=== PATIENT | male | born 1970 | race Caucasian/White ===

== ENCOUNTER 2018-04-10 11:14 | Inpatient (IN) | payer MEDICARE ==
--- NOTE | 2018-04-10 11:27 | ED ---
Psychiatric Complaint - HPI Summary HPI Summary: This pt is a 47 y/o male presenting to [facility] via EMS for auditory hallucinations. EMS states pt called them to come to the ED voluntarily for auditory hallucinations. Pt reports "there's a family living inside of me" and he hears them say "we are going to keep doing this until he is and buried. " He additionally states "she's trying to kill me." When asked if he knows who is she, he states he doesn't know. He reports he has SI and HI "all the time" and "absolutely I want to kill myself and everybody to get some peace." Pt notes his symptoms began "years ago." In 1992 he was diagnosed with schizophrenia, but states this was something his family made up to keep him away. Per EMS, pt is noncompliant with mental health medications. PMHx: HTN for which he is on medications. Pt admits to tobacco, marijuana, and alcohol use. He states the last time he drank alcohol was today. - History Of Current Complaint Chief Complaint: EDMentalHealth Hx Obtained From: Patient, EMS Onset/Duration: Lasting Weeks, Still Present Timing: Weeks Severity Currently: Severe Character: Manic Aggravating Factor(s): Medication Non-compliance Alleviating Factor(s): Nothing Associated Signs And Symptoms: Positive: Hallucinating Related History: Positive For: Prior Psychiatric Issues Has Suicidal: Reports: Thoughts. Denies: With A Plan Has Homicidal: Reports: Thoughts. Denies: With A Plan - Allergies/Home Medications Allergies/Adverse Reactions: Allergies Allergy/AdvReac Type Severity Reaction Status Date / Time No Known Allergies Allergy Verified 04/10/18 11:41 Home Medications: Home Medications Asenapine(NF) [Saphris(NF)] 10 mg SL DAILY 04/10/18 [History Confirmed 04/10/18] dilTIAZem HCl [Diltiazem 24Hr Cd] 180 mg PO DAILY 04/10/18 [History Confirmed ] PMH/Surg Hx/FS Hx/Imm Hx Endocrine/Hematology History: Denies: Hx Diabetes Cardiovascular History: Reports: Hx Hypertension Psychiatric History: Reports: Hx Schizophrenia Infectious Disease History: No Infectious Disease History: Denies: Traveled Outside the [place] in Last 30 Days - Family History Known Family History: Negative: Cardiac Disease, Hypertension, Diabetes - Social History Alcohol Use: Daily Substance Use Type: Reports: Marijuana Smoking Status (MU): Light Every Day Tobacco Smoker Review of Systems Negative: Fever, Chills Cardiovascular: Negative Respiratory: Negative Gastrointestinal: Negative Psychological: Other - POS: SI , HI, auditory hallucinations All Other Systems Reviewed And Are Negative: Yes Physical Exam - Summary Physical Exam Summary: VITAL SIGNS: Reviewed. GENERAL: Patient is a well-developed and nourished male. Patient is not in any acute respiratory distress. HEAD AND FACE: Normocephalic EYES: PERRLA, EOMI x 2. EARS: Hearing grossly intact. MOUTH: Oropharynx within normal limits. NECK: Supple, trachea is midline, no adenopathy, no JVD, no carotid bruit. CHEST: Symmetric, no tenderness at palpation LUNGS: Clear to auscultation bilaterally. No wheezing or crackles. CVS: Regular rate and rhythm, S1 and S2 present, no murmurs or gallops appreciated. ABDOMEN: Soft, non-tender. Bowel sounds are normal. No abdominal abnormal pulsations. EXTREMITIES: Full ROM in all major joints, no edema, no cyanosis or clubbing. NEURO: Alert and oriented x 3. No acute neurological deficits. Speech is normal and follows commands. SKIN: Dry and warm PSYCH: Has suicidal thoughts and homicidal thoughts. Patient with auditory hallucinations. Triage Information Reviewed: Yes Vital Signs On Initial Exam: Initial Vitals Temp Pulse Resp BP Pulse Ox 99 F 105 20 159/110 94 04/10/18 11:15 04/10/18 11:15 04/10/18 11:15 04/10/18 11:15 04/10/18 11:15 Vital Signs Reviewed: Yes Diagnostics - Vital Signs Vital Signs Temp Pulse Resp BP Pulse Ox 04/10/18 11:15 99 F 105 20 159/110 94 - Laboratory Result Diagrams: 04/10/18 11:43 04/10/18 11:44 Lab Statement: Any lab studies that have been ordered have been reviewed, and results considered in the medical decision making process. Re-Evaluation - Re-Evaluation First Eval Re-Evaluation Time: 12:24 Comment: Pt is medically cleared. Course/Dx - Course Assessment/Plan: This patient is a 47-year-old male who came in here with the auditory hallucinations and suicidal and homicidal ideation. The patient is medically clear. Blood work is found to be within normal limits except for creatinine 1.63 and BUN 5. Patient is waiting for mental health evaluation. She had a mental health evaluation and his case was reviewed by Dr. Parsons, psychiatrist. Dr. Parsons will admit the pt to [facility] Psych Facility with dx psychosis. - Differential Dx/Clinical Impression Differential Diagnosis/HQI/PQRI: Positive: Anxiety, Depression, Homicidal Ideation, Suicidal Ideation, Other - Auditory hallucinations Provider Diagnosis: Psychosis Discharge - Sign-Out/Discharge Documenting (check all that apply): Patient Departure - Admit to [facility] PS[facility]CH Patient Received Moderate/Deep Sedation with Procedure: No - Discharge Plan Condition: Stable Disposition: PSYCHIATRIC FACILITY-[facility] Referrals: No Primary Care Phys,NOPCP [Primary Care Provider] - - Billing Disposition and Condition Condition: STABLE Disposition: Psychiatric Facility [facility] - Attestation Statements Document Initiated by Scribe: Yes Documenting Scribe: Megha Zhu Provider For Whom Scribe is Documenting (Include Credential): Vasile Figueroa MD Scribe Attestation: Megha Bocanegra, scribed for Vasile Fiugeroa MD on 04/10/18 at 1604. Scribe Documentation Reviewed: Yes Provider Attestation: The documentation as recorded by the Megha ann accurately reflects the service I personally performed and the decisions made by , Vasile Figueroa MD Status of Scribe Document: Viewed
[2018-04-10 11:53] LABS: Urine Appearance Clear; Urine Bilirubin Negative (Negative); Urine Blood Negative (Negative); Urine Color Yellow; Urine Glucose Negative (Negative); Urine Ketones Negative (Negative); Urine Nitrite Negative (Negative); Urine Protein Negative (Negative); Urine Specific Gravity 1.008 (1.010-1.030); Urine Urobilinogen Negative (Negative)
[2018-04-10 11:54] LABS: ABS Basophils 0.1 10^3/ul (0-0.2); ABS Eosinophils 0 10^3/ul (0-0.6); ABS Lymphocytes 1.8 10^3/ul (1.0-4.8); ABS Monocytes 0.4 10^3/ul (0-0.8); ABS Neutrophils 4.7 10^3/ul (1.5-7.7); ABS Nucleated RBC 0 10^3/ul; Eosinophil % 0.6 %; Hematocrit 48 % (42-52); Hemoglobin 16.5 g/dl (14.0-18.0); Lymphocyte % 26.2 %; Mean Corpuscular HGB Conc 34 g/dl (31-36); Mean Corpuscular Hemoglobin 31 pg (27-31); Mean Corpuscular Volume 91 fL (80-94); Mean Platelet Volume 7.4 fL (7.4-10.4); Nucleated Red Blood Cells % 0.1; Platelet Count 267 10^3/ul (150-450); Red Blood Count 5.27 10^6/ul (4.00-5.40); Red Cell Distribution Width 14 % (10.5-15)
[2018-04-10 12:07] LABS: Barbiturates Urine Screen None Detected (None Detect); Benzodiazepine Urine Screen None Detected (None Detect); Urine Cannabinoids Screen None Detected (None Detect)
[2018-04-10 12:14] LABS: ALT 14 U/L (7-52); AST 17 U/L (13-39); Albumin 4.3 g/dL (3.2-5.2); Albumin/Globulin Ratio 1.5 (1-3); Alkaline Phosphatase 66 U/L (34-104); Anion Gap 9 mmol/L (2-11); BUN/Creatinine Ratio 7.9 (8-20); Blood Urea Nitrogen 5 mg/dL (6-24); CO2 Carbon Dioxide 25 mmol/L (22-32); Chloride 101 mmol/L (101-111); EGFR African American 165.9 (>60); EGFR Non-African American 137.1 (>60); Globulin 2.8 g/dL (2-4); Glucose 89 mg/dL (70-100); Potassium 4.1 mmol/L (3.5-5.0); Sodium 135 mmol/L (135-145); Total Protein 7.1 g/dL (6.4-8.9)
[2018-04-10 12:47] LABS: Acetaminophen < 15 mcg/mL; Alcohol 147 mg/dL (<10); Salicylate < 2.50 mg/dL (<30)
[2018-04-10 13:00] LABS: TSH (Thyroid Stimulating Horm) 0.63 mcIU/mL (0.34-5.60)
[2018-04-10] MEDS ORDERED: Nicotine GUM* 2 MG PO PRN (16:48)
[2018-04-10] MEDS ORDERED: Al Hydrox/Mg Hydrox/Simet LIQ* 30 ML UDC PO PRN (17:08)
[2018-04-10] MEDS ORDERED: Nicotine PATCH 21 MG/24 HR* PATCH TRANSDERM PRN (17:59)
[2018-04-10] MEDS: LORazepam TAB(*) 1 MG PO PRN (19:14)
[2018-04-10] MEDS: Nicotine Inhaler* 10 MG AMP INH PRN (19:14)
[2018-04-10] MEDS: Haloperidol TAB* 5 MG PO PRN (19:14)
[2018-04-10] MEDS: Mouth Piece, Nicotine* 1 EACH CARTRIDGE INH PRN (19:14)
[2018-04-10] MEDS: Nicotine Patch Removal NOTE PATCH OFF SCH (19:35)
[2018-04-11] MEDS: Vitamin THERAPEUTIC TAB PO SCH (08:37)
[2018-04-11] MEDS: Diltiazem CD CAP* 180 MG PO SCH (08:37)
[2018-04-11] MEDS: Acetaminophen TAB* 325 MG PO PRN ×2 (08:38→20:59)
[2018-04-11] MEDS: LORazepam TAB(*) 1 MG PO PRN (09:15)
--- NOTE | 2018-04-11 10:07 | HP ---
H&P (Free Text) History and Physical: Justification for admission: Immediate Safety. CC " I hear voices" 47 year old homeless white male with a history of schizophrenia and severe alcohol abuse. The patient was brought to [facility] by ambulance after he called 911 stating that he was hearing voices and expressing suicidal ideation. He has not been taking medications for the last month because he did not like the way they made him feel. He denied access to firearms or stockpiles of medications. He reported that he sleep is poor and has a adequate appetite. The patient denied homicidal ideation intent or plan. The patient denied visual hallucinations. The patient reported that he hears voices telling him they will rape him. Per emergency room report he reported hearing voices telling him that "theres a family living inside of me... we are going to keep doing this until he is and buried." He reported that he first started hearing voices in 1992 and medication help with the voices. He reported heavy drinking about 24 beers a day and his alcohol level was 147 yesterday at 800am . He denied shaking, tremors, visual hallucinations or seizures. Patient whispers I have something confidential to tell you and writes it down on paper : " I have a white lesion on my left cheek." He voiced a concern for cancer and reported having weight loss. Psychosis Currently he endorsed hearing things that other people do not hear. Denied feeling that TV is making references. He reported feeling paranoid and difficult to trust others. Bipolar He reported symptoms of manuela in the past such as having many ideas at once associated with increased talkativeness where no one can interrupt. Flying to [place] and maxing out 2 credit cards. He has had in the past decreased need to sleep for days , prolonged elevated heightened mood , or feeling on top of the world. MDD Reported lately feeling depressed or having diminished interest in things. He reported feeling empty inside, with feelings of hopelessness. Anxiety Denied having symptoms of anxiety such as having times where heart feels that it is beating out of chest , sweaty palms, or shallow breathing. Denied having uncomfortable or intrusive thoughts. Denied feeling restless, high strung, or worrying too much most of the time. Phobias: Patient denied having excessive fear of a particular thing or situation. Eating disorders: Patient denied having excessive eating habits or feelings of guilt after eating. Denied repeated episodes of self induced vomiting after eating. PTSD Denied flashbacks, nightmares and avoidance of a prior traumatic event. PAST PSYCHIATRIC HISTORY: Prior Diagnosis : Schizophrenia, Alcohol use disorder. History of past Psychiatric Hospitalizations: 2 prior psychiatric admissions with the first one in 1992 at [facility], when he attempted hanging himself. He drank anti freeze and was hospitalized a second time date unknown. History of past suicide/homicide attempts : 2 past suicide attempts. Denied past homicidal incidents. Outpatient follow-up: None Medications: Past trials of medications include Saphris , Gabapentin , Seroquel. FAMILY HISTORY: - Suicide: Denied family history of suicide. - Mental illness: Denied a history of mental health in immediate family members. - Substance abuse: His mother and uncle have a history of alcohol abuse. SUBSTANCE ABUSE HISTORY: Reports drink 12-24 beers daily for the last year. He was sober from alcohol for 8-9 years. He smokes tobacco 1ppd for multiple years. He denied using heroin and cocaine other illicit substances. Denied abusing pills not prescribed . He has had 2 past substance abuse detox treatments in the last 10 years He uses cannabis 2-3 times a week. 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 He denied a history of physical and or sexual abuse. He is currently homeless. He is and has no children. - Legal history: Denied - service history: Denied PAST MEDICAL HISTORY: Denied heart disease, diabetes, cancer and/ or other medical conditions. - Allergies: Denied allergies to medication, food, and or environmental byproducts. Physical Exam: Please see ED note Mental Status Exam on Admission APPEARANCE : 47 year old white male who appears stated age. Patient is not malodourous, and appears to have fair hygiene and grooming. BEHAVIOR: Cooperative , calm EYE CONTACT: Fair PSYCHOMOTOR ACTIVITY: No psychomotor agitation or retardation. MOVEMENTS: No abnormal movements observed. SPEECH : Slow rate, rhythm, low volume and tone. MOOD : "Anxious " AFFECT : Constricted THOUGHT PROCESS: loose associations THOUGHT CONTENT: paranoid delusions PERCEPTION: Current auditory hallucinations. SUICIDALITY Current suicidal ideation HOMICIDALITY Denied homicidal ideation, intent or plan. Insight/judgment: Poor insight and judgment ORIENTATION: Oriented to self, location, and time. Diagnosis on Admission: Schizo-affective disorder, depressive type. Alcohol Use Disorder, severe. Tobacco Use disorder. Assessment: 47 year old with history of schizophrenia , and alcohol abuse came to the hospital and was admitted to the BSU at [facility] for suicidal ideation and auditory hallucinations . Plan # Justification for Admission: For immediate safety per outlined in the [facility] Hygiene Code. # Voluntary admission. The patient requires inpatient admission at this time to assure safety, receive treatment and work toward stabilization. # Labs ordered: CBC, CMP, UDS, TSH, HBA1c, TSH, Toxicology screen, Urine analysis, and lipid profile. # EKG ordered for risk of QT prolongation of anti-psychotic medication. #Admit to BSU, Q15 minute observation. Start regular diet. Encourage participation in activities on the milieu. # Obtain collateral information once release is signed. #Patient evaluated in ED and was determined by the emergency room Physician to be medically stable for admission to the BSU. # Collaboration with Social Work to work toward discharge planning. #Start Seroquel 200mg at night. #Start Depakote 250mg BID. Liver enzymes within normal limits #[facility] protocol for alcohol withdrawal #Substance Abuse resources offered. #Abnormal EKG results #Medicine team consulted for evaluation and management of medical issues including abnormal ekg, white mouth lesions. #Tobacco use disorder: Nicotine supplement treated offered and put in place. #Goals before discharge include: Mitigate auditory hallucinations and suicidal ideation. The risks, benefits, and alternative treatment options were discussed as well as of the risks of refusing treatment. After this discussion and an acknowledgement of this understanding was made. A risk/ benefit assessment of treatment was considered and discussed with the patient. When comparing the risks of treatment with the dangers of not receiving treatment, the benefits of treatment outweigh the treatment risks at this time. Risks of suicidal ideation , behavioral changes, dystonia, movement disorders, cardiac conduction changes , serotonin syndrome, metabolic risks and NMS were among some of the risks discussed. Vital Signs Temp Pulse Resp BP Pulse Ox 99.2 F 95 16 160/106 100 04/11/18 08:10 04/11/18 11:29 04/11/18 11:40 04/11/18 11:29 04/11/18 11:29 Sodium 135 mmol/L (135-145) 04/10/18 11:44 Potassium 4.1 mmol/L (3.5-5.0) 04/10/18 11:44 BUN 5 mg/dL (6-24) L 04/10/18 11:44 Creatinine 0.63 mg/dL (0.67-1.17) L 04/10/18 11:44 Calcium 9.0 mg/dL (8.6-10.3) 04/10/18 11:44 AST 17 U/L (13-39) 04/10/18 11:44 ALT 14 U/L (7-52) 04/10/18 11:44
[2018-04-11] MEDS: Folic Acid TAB* 1 MG PO SCH (11:33)
[2018-04-11] MEDS: Thiamine TAB* 100 MG TAB PO SCH (11:33)
[2018-04-11] MEDS: cloNIDine TAB* 0.1 MG PO SCH ×2 (13:35→20:56)
[2018-04-11] MEDS: Nicotine Inhaler* 10 MG AMP INH PRN ×3 (13:35→21:01)
--- NOTE | 2018-04-11 16:30 | CONS ---
CC: Dr. Fawad Harris CONSULTATION REPORT: DATE OF CONSULT: 04/11/18 PRIMARY CARE PROVIDER: None. REQUESTING PHYSICIAN IN CONSULT: Dr. Fawad Harris. ATTENDING PHYSICIAN: Dr. Bebo Chris (dictated by Jessica Granados NP). REASON FOR CONSULT: Mouth sore and hypertension. HISTORY OF PRESENT ILLNESS: I will refer you to the history and physical by Dr. Harris on 04/11/18 for complete details, but in short, Mr. Paige is a 47- year-old male with past medical history of schizophrenia and alcohol abuse, who presented to the emergency room on 04/10/18 for a voluntary mental health evaluation. He was reportedly having auditory hallucination and reported that there were voices telling him to hurt himself and others. He did report drinking alcohol to self-medicate. He was admitted voluntarily to the mental health unit here at [facility]. Hospital Medicine was consulted due to the concern for a white lesion in the patient's mouth. The patient reportedly was concerned about cancer and recent weight loss and asked to have the lesion evaluated. On my exam, the patient is quite disengaged, though does admit to me that he has had a lesion on the inside of his left cheek for anywhere from 2 to 7 months. He is unable to provide me with a more accurate time frame. He is also unable to provide me with much further history about the lesion. He is not sure if it has been there the entire time or if it has been present intermittently. It is not painful, but more of an annoyance. He did not notice any lesions prior to this one. He does admit to chewing on his cheeks when he is nervous and he knows that he does this in his sleep quite often. He reported to me that he was concerned about HIV. He has had unprotected sex many times with both men and women, the most recent time being approximately 6 months ago. He reported to me that in high school he wrote a paper about symptoms of HIV and so is very concerned about the mouth lesion and his HIV status. He has not been tested before. He is not sure if anything makes the sore better or worse. He denies any recent illness. He denies any fever, chills, night sweats, cough, hemoptysis, myalgias, or gastrointestinal complaints. He has been taking Cardizem for hypertension for an unknown amount of time and was not aware that his blood pressure has been high. He denies any dizziness, headaches, or changes in vision. PAST MEDICAL HISTORY: 1. Schizophrenia. 2. Hypertension. PAST SURGICAL HISTORY: None. HOME MEDICATIONS: 1. Asenapine 10 mg sublingual daily. 2. Diltiazem CD 180 mg p.o. daily. ALLERGIES: No known drug allergies. FAMILY HISTORY: Unobtainable. SOCIAL HISTORY: The patient reports smoking for greater than 30 years. He is not able to quantify how much he smokes. He admits to drinking 12 to 24 beers daily and has been doing so for the last approximately 8 years. He also admits to using marijuana multiple times a week, but denies any other recreational drug use. He is currently homeless. He is unable to provide me with the name of a surrogate decision maker in the event he is unable to make his own decisions. REVIEW OF SYSTEMS: An 11-point review of systems was performed and all the pertinent positive and negative findings are in the HPI. All other systems are negative. PHYSICAL EXAM: General: Mr. Paige is a well-developed, well-nourished thin white male, lying in bed in no acute distress. He appears his stated age. Vital Signs: Temp 99.2, heart rate 95, respiratory rate 16, oxygen saturation 100% on room air. Blood pressure 160/106. HEENT: Head is atraumatic and normocephalic. Visual hunter are grossly intact. Oral mucous membranes are moist. Dentition fair. There is a lesion measuring approximately 4 mm x 4 mm. It is difficult to visualize as the patient is not particularly compliant with my instructions, though there does seem to be some erythema surrounding the lesion. Pharynx is clear. Neck: Full range of motion. Trachea midline. Respiratory: Symmetrical chest expansion. No chest wall deformity. Lungs clear to auscultation throughout. No rhonchi, wheezes, or rubs. Cardiovascular : Regular rate and rhythm. S1 and S2 present. No murmurs, rubs, or gallops. Musculoskeletal: Full range of motion. No pain or deformities. Neuro: Awake, alert, and oriented x4, aloof, affect is flat, and he is quite disengaged. Moves all extremities. Steady gait with no impairment. Skin: Grossly intact without lesions except for that mentioned above. DIAGNOSTIC STUDIES AND LABORATORY DATA: WBC 7.0, RBC 5.27, hemoglobin 16.5, hematocrit 48, platelets 267. Sodium 135, potassium 4.1, chloride 101, carbon dioxide 25. BUN 5, creatinine 0.63, glucose 89. Urinalysis unremarkable. Toxicology screen negative. Serum alcohol 147. EKG shows normal sinus rhythm with a rate of 95. QTc 436. Q waves present in inferior and lateral leads. Minimal ST segment changes, though this may represent artifact. There are no prior EKGs for comparison. ASSESSMENT AND PLAN: Mr. aPige is a 47-year-old male with past medical history of schizophrenia, hypertension, and alcohol abuse, who presented to [facility] requesting voluntary mental health admission and was admitted to the behavioral services unit. Hospital Medicine has been asked to consult for co-medical management, and my recommendations are as follows: 1. Schizophrenia. Management per Psych. 2. Oral lesion. The differentials include aphthous ulcer, cancer of the oral mucosa, or potential manifestation of HIV. The patient does admit to frequently biting the inside of his cheek, so I certainly think that an aphthous ulcer is high on the differential due to the repeated trauma to the area. Cancer of the oral mucosa is certainly possible due to his long smoking history. The patient does admit to having unprotected sex with both men and women, so HIV cannot be ruled out. An HIV is pending at this time. As long as that is negative, I would not have any further recommendations at this point except for outpatient followup as long as he remains asymptomatic. The patient should be encouraged to avoid trauma to the area. Because of the potential for cancer, he should follow up with a dentist to have further evaluation. The lesion is not painful at this point, so I do not think he needs any oral rinses containing steroids or lidocaine, but if it becomes painful or bothersome, those could be considered. We will follow up on his pending HIV lab and determine further treatment or recommendations at that point. 3. Hypertension. The patient has a known history of hypertension, for which he is taking diltiazem. Since arriving in the emergency room, his systolic pressures have been upwards of 150 and diastolics have not been below 100. I certainly think that his blood pressure may be elevated at this point in part due to alcohol withdrawal. At this point, I would recommend clonidine t.i.d. as this will help with his blood pressure and will also help with his alcohol and nicotine cravings that he has expressed to me. If his blood pressure remains elevated after the initiation of clonidine, we can reassess his diltiazem dosing at that point as he certainly has room to go up. 4. Questionable EKG abnormalities. The patient does not have any cardiac symptoms, but I did feel it was pertinent to check a troponin which is pending at this time. I do not think that this represents any acute cardiac event. 5. Code status. The patient will be a full code. Thank you for this consultation. I have spoken with the patient's attending physician, Dr. Harris, and reviewed my recommendations with him. We will continue to follow along to follow for pending labs and blood pressure. TIME SPENT: Approximately 60 minutes were spent on this consultation, greater than half of that time spent [id number] with the patient, obtaining my history , performing my physical exam, and reviewing the plan of care. This case has been reviewed with my attending, Dr. Chris, who is in agreement with the plan of care. JESSICA GRANADOS, LORE [id number]/CPS #: [id number] NHI
[2018-04-11] MEDS: QUEtiapine TAB* 100 MG PO SCH (20:56)
[2018-04-11] MEDS: Valproic Acid CAP(*) 250 MG PO SCH (20:57)
[2018-04-11] MEDS: Nicotine Patch Removal NOTE PATCH OFF SCH (21:23)
[2018-04-12 08:05] LABS: HDL Cholesterol 76.7 mg/dL
[2018-04-12] MEDS: Diltiazem CD CAP* 180 MG PO SCH (08:48)
[2018-04-12] MEDS: Folic Acid TAB* 1 MG PO SCH (08:48)
[2018-04-12] MEDS: Thiamine TAB* 100 MG TAB PO SCH (08:49)
[2018-04-12] MEDS: Vitamin THERAPEUTIC TAB PO SCH (08:49)
[2018-04-12] MEDS: LORazepam TAB(*) 1 MG PO SCH ×2 (08:49→23:05)
[2018-04-12] MEDS: Mouth Piece, Nicotine* 1 EACH CARTRIDGE INH PRN ×2 (10:19→16:48)
[2018-04-12] MEDS: Nicotine Inhaler* 10 MG AMP INH PRN ×2 (10:19→20:23)
[2018-04-12] MEDS: Valproic Acid CAP(*) 250 MG PO SCH ×2 (10:49→20:20)
[2018-04-12] MEDS: cloNIDine TAB* 0.1 MG PO SCH ×3 (10:49→20:18)
[2018-04-12] MEDS: Acetaminophen TAB* 325 MG PO PRN ×2 (15:47→23:05)
--- NOTE | 2018-04-12 16:19 | PN ---
Subjective - Subjective Date of Service: 04/12/18 Service Type: 65018 Hosp care 35 min high complexity Subjective: Nursing Report: Patient was visible on unit, no chemical restraints No behavioral concerns . Slept overnight without incident. CC: " I do not have anywhere to go" Patient was seen and evaluated in the common room. He was worried about another peer on the unit listening in on his conversation. The patient reported he need housing and thinks that he may go stay with a friend after discharge. He reported feeling drowsy from medications. He reported having an adequate appetite and sleep. Per nursing no behavioral issues or overnight events reported. Patient reported that he continues to hear voices. He denied suicidal ideation, intent or plan. Objective - Appearance Appearance: Thin Framed Dysmorphic Features: No Hygiene: Normal Grooming: Well Kept - Behavior Psychomotor Activities: Abnormal-Decreased Exhibits Abnormal Movement: No - Attitude and Relatedness Attitude and Relatedness: Cooperative Eye Contact: Fair - Speech Quality: Unpressured Latencies: Normal Quantity: Appropriate - Mood Patient's Decription of Mood: "Okay" - Affect Observed Affect: Constricted Affect Consistent with: Dysphoria - Thought Process Patient's Thought Process: Goal Directed Thought Content: No Passive Wish, No Suicidal Planning, No Homicidal Ideation, No Paranoid Ideation - Sensorium Experiencing Hallucinations: Yes Type of Hallucinations: Visual: No, Auditory: Yes, Command: No - Level of Consciousness Level of Consciousness: Alert Orientation: Yes Intact, Yes Orientated to Time, Yes Orientated to Place, Yes Orientated to Person - Impulse Control Impulse Control: Tenuous - Insight and Judgement Insight and Judgement: Fair - Group Participation Particating in Group Activities: No - Medication Management Medication Management Adherence: Partial Assessment - Assessment Merits Inpatient Hospitalization: For Immediate Safety Clinical Impression: 47 year old male with a history of schizophrenia who is homeless and recently suicidal. Plan - Plan Treatment Plan: Name: GABRIELA GRECO Birthdate: 1970 [id number] # Voluntary admission. The patient requires inpatient admission at this time to assure safety, receive treatment and work toward stabilization. #Patient placed 72 hour notice in today #Q15 minute observation # Patient has no collateral information contacts #Continue Seroquel 200mg at night. #[facility] protocol #Continue Depakote 250mg BID. Liver enzymes within normal limits #Substance Abuse resources offered and is thinking about substance abuse rehabilitation AA offered. #Tobacco use disorder: Nicotine supplement treatment offered and put in place. He refused smoking cessation resources. #Goals before discharge include: Mitigate auditory hallucinations and suicidal ideation. Patient was informed of housing options. Vital Signs Temp Pulse Resp BP Pulse Ox 97.6 F 111 16 143/96 99 04/12/18 08:39 04/12/18 08:39 04/12/18 15:58 04/12/18 08:39 04/12/18 08:39 Laboratory Results - last 24 hr 04/10/18 04/10/18 04/12/18 11:44 11:44 07:16 WBC 7.0 RBC 5.27 Hgb 16.5 Hct 48 MCV 91 MCH 31 MCHC 34 RDW 14 Plt Count 267 MPV 7.4 Neut % (Auto) 66.5 Lymph % (Auto) 26.2 [place] % (Auto) 5.8 Eos % (Auto) 0.6 Baso % (Auto) 0.9 Absolute Neuts (auto) 4.7 Absolute Lymphs (auto) 1.8 Absolute Monos (auto) 0.4 Absolute Eos (auto) 0 Absolute Basos (auto) 0.1 Absolute Nucleated RBC 0 Nucleated RBC % 0.1 Hemoglobin A1c Triglycerides 214 Cholesterol 239 LDL Cholesterol 120 HDL Cholesterol 76.7 HIV 1&2 Antibody Nonreactive 04/12/18 07:16 WBC RBC Hgb Hct MCV MCH MCHC RDW Plt Count MPV Neut % (Auto) Lymph % (Auto) [place] % (Auto) Eos % (Auto) Baso % (Auto) Absolute Neuts (auto) Absolute Lymphs (auto) Absolute Monos (auto) Absolute Eos (auto) Absolute Basos (auto) Absolute Nucleated RBC Nucleated RBC % Hemoglobin A1c 4.9 Triglycerides Cholesterol LDL Cholesterol HDL Cholesterol HIV 1&2 Antibody Acetaminophen (Tylenol Tab*) 650 mg PO Q4H PRN PRN Reason: PAIN or TEMP > 101 F Last Admin: 04/12/18 15:47 Dose: 650 mg Al Hydrox/Mg Hydrox/Simethicone (Maalox Plus*) 30 ml PO Q4H PRN PRN Reason: INDIGESTION Clonidine HCl (Catapres Tab*) 0.1 mg PO TID ALAN Last Admin: 04/12/18 15:13 Dose: 0.1 mg Device (Nicotine Mouth Piece*) 1 each INH .USE W/ CARTRIDGE PRN PRN Reason: WITHDRAWAL - NICOTINE Last Admin: 04/12/18 10:19 Dose: 1 each Diltiazem HCl (Cardizem Cd Cap*) 180 mg PO DAILY [facility] Last Admin: 04/12/18 08:48 Dose: 180 mg Folic Acid (Folvite Tab*) 1 mg PO DAILY [facility] Last Admin: 04/12/18 08:48 Dose: 1 mg Haloperidol (Haldol Tab*) 5 mg PO Q6H PRN PRN Reason: AGITATION Last Admin: 04/10/18 19:14 Dose: 5 mg Lorazepam (Ativan Tab(*)) 0 - 6 mg PO .PER [facility] PROTOCOL [facility]; Protocol Last Admin: 04/12/18 08:49 Dose: 2 mg Multivitamins (Theragran Tab*) 1 tab PO DAILY [facility] Last Admin: 04/12/18 08:49 Dose: 1 tab Nicotine (Nicotine Inhaler*) 10 mg INH Q2H PRN PRN Reason: CRAVING Last Admin: 04/12/18 10:19 Dose: 10 mg Nicotine (Nicotine Patch 21 Mg/24 Hr*) 1 patch TRANSDERM DAILY PRN PRN Reason: CRAVINGS Nicotine Polacrilex (Nicotine Gum*) 2 mg PO Q2H PRN PRN Reason: CRAVING Pharmacy Profile Note (Nicotine Patch Removal Note*) 1 note PATCH OFF 2100 [facility] Last Admin: 04/11/18 21:23 Dose: Not Given Quetiapine Fumarate (Seroquel Tab*) 200 mg PO BEDTIME [facility] Last Admin: 04/11/18 20:56 Dose: 200 mg Thiamine HCl (Vitamin B-1 Tab*) 100 mg PO DAILY [facility] Last Admin: 04/12/18 08:49 Dose: 100 mg Valproic Acid (Depakene Cap(*)) 250 mg PO BID [facility] Last Admin: 04/12/18 10:49 Dose: Not Given Continued Medication Management: Continue Outpt Medication Medications: Current Medications Acetaminophen (Tylenol Tab*) 650 mg PO Q4H PRN PRN Reason: PAIN or TEMP > 101 F Last Admin: 04/12/18 15:47 Dose: 650 mg Al Hydrox/Mg Hydrox/Simethicone (Maalox Plus*) 30 ml PO Q4H PRN PRN Reason: INDIGESTION Clonidine HCl (Catapres Tab*) 0.1 mg PO TID [facility] Last Admin: 04/12/18 15:13 Dose: 0.1 mg Device (Nicotine Mouth Piece*) 1 each INH .USE W/ CARTRIDGE PRN PRN Reason: WITHDRAWAL - NICOTINE Last Admin: 04/12/18 10:19 Dose: 1 each Diltiazem HCl (Cardizem Cd Cap*) 180 mg PO DAILY [facility] Last Admin: 04/12/18 08:48 Dose: 180 mg Folic Acid (Folvite Tab*) 1 mg PO DAILY [facility] Last Admin: 04/12/18 08:48 Dose: 1 mg Haloperidol (Haldol Tab*) 5 mg PO Q6H PRN PRN Reason: AGITATION Last Admin: 04/10/18 19:14 Dose: 5 mg Lorazepam (Ativan Tab(*)) 0 - 6 mg PO .PER [facility] PROTOCOL [facility]; Protocol Last Admin: 04/12/18 08:49 Dose: 2 mg Multivitamins (Theragran Tab*) 1 tab PO DAILY [facility] Last Admin: 04/12/18 08:49 Dose: 1 tab Nicotine (Nicotine Inhaler*) 10 mg INH Q2H PRN PRN Reason: CRAVING Last Admin: 04/12/18 10:19 Dose: 10 mg Nicotine (Nicotine Patch 21 Mg/24 Hr*) 1 patch TRANSDERM DAILY PRN PRN Reason: CRAVINGS Nicotine Polacrilex (Nicotine Gum*) 2 mg PO Q2H PRN PRN Reason: CRAVING Pharmacy Profile Note (Nicotine Patch Removal Note*) 1 note PATCH OFF 2100 [facility] Last Admin: 04/11/18 21:23 Dose: Not Given Quetiapine Fumarate (Seroquel Tab*) 200 mg PO BEDTIME [facility] Last Admin: 04/11/18 20:56 Dose: 200 mg Thiamine HCl (Vitamin B-1 Tab*) 100 mg PO DAILY [facility] Last Admin: 04/12/18 08:49 Dose: 100 mg Valproic Acid (Depakene Cap(*)) 250 mg PO BID [facility] Last Admin: 04/12/18 10:49 Dose: Not Given - Discharge Plan Discharge Plan: Inpatient Hospitalization
--- NOTE | 2018-04-12 17:46 | PN ---
Hospitalist Progress Note Date of Service: 04/12/18 HIV serology is negative, discussed with Maria Del Rosario in [facility] who will relay to the patient. Recommend Magic Mouthwash PRN for apthous ulcer. Continue BP meds as ordered. Recommend outpatient follow up for HTN when discharged at [facility] if patient has no PCP. Will sign off, please reconsult as needed. Thank you.
[2018-04-12] MEDS: QUEtiapine TAB* 100 MG PO SCH (20:19)
[2018-04-12] MEDS: Nicotine Patch Removal NOTE PATCH OFF SCH (20:22)
[2018-04-13] MEDS: Mouth Piece, Nicotine* 1 EACH CARTRIDGE INH PRN (05:15)
[2018-04-13] MEDS: Nicotine Inhaler* 10 MG AMP INH PRN ×4 (05:15→19:41)
[2018-04-13] MEDS: Thiamine TAB* 100 MG TAB PO SCH (08:37)
[2018-04-13] MEDS: Diltiazem CD CAP* 180 MG PO SCH (08:37)
[2018-04-13] MEDS: Vitamin THERAPEUTIC TAB PO SCH (08:37)
[2018-04-13] MEDS: Valproic Acid CAP(*) 250 MG PO SCH ×2 (08:37→21:09)
[2018-04-13] MEDS: cloNIDine TAB* 0.1 MG PO SCH ×3 (08:37→21:08)
[2018-04-13] MEDS: Folic Acid TAB* 1 MG PO SCH (08:37)
--- NOTE | 2018-04-13 11:08 | PN ---
Subjective - Subjective Date of Service: 04/13/18 Service Type: 40445 Hosp care 25 min moderate complexity Objective - Appearance Appearance: Thin Framed Dysmorphic Features: No Hygiene: Normal Grooming: Fairly Well Kept - Behavior Psychomotor Activities: Normal Exhibits Abnormal Movement: No - Attitude and Relatedness Attitude and Relatedness: Cooperative Eye Contact: Fair - Speech Quality: Unpressured Latencies: Normal Quantity: Terse - Mood Patient's Decription of Mood: "Okay" - Affect Observed Affect: Constricted Affect Consistent with: Dysphoria - Thought Process Patient's Thought Process: Loose Associations Thought Content: Yes Paranoid Ideation, No Passive Wish, No Suicidal Planning, No Homicidal Ideation - Sensorium Experiencing Hallucinations: No, Sensorium is Clear Type of Hallucinations: Visual: No, Auditory: No, Command: No - Level of Consciousness Level of Consciousness: Alert Orientation: Yes Intact, Yes Orientated to Time, Yes Orientated to Place, Yes Orientated to Person - Impulse Control Impulse Control: Tenuous - Insight and Judgement Insight and Judgement: Fair - Group Participation Particating in Group Activities: Yes - Medication Management Medication Management Adherence: Partial Assessment - Assessment Clinical Impression: 47 year old male with a history of schizophrenia who is homeless. He has been responsive to treatment and no longer hears voices. Patient considering alcohol rehabilitation center. Plan - Plan Treatment Plan: Name: GABRIELA GRECO Birthdate: 1970 [id number] # Voluntary admission. The patient requires inpatient admission at this time to assure safety, receive treatment and work toward stabilization. #Q15 minute observation # Patient has no collateral information contacts #Continue Seroquel 200mg at night. #[facility] protocol #Continue Depakote 250mg BID. Liver enzymes within normal limits #Patient is considering alcohol rehabilitation center in [place]. #Tobacco use disorder: Nicotine supplement treatment offered and put in place. He refused smoking cessation resources. #Goals before discharge include: Mitigate auditory hallucinations and suicidal ideation. Vital Signs 04/12/18 04/12/18 04/12/18 15:00 15:05 15:11 Temperature Pulse Rate 99 Respiratory 16 16 16 Rate Blood Pressure 157/104 (mmHg) O2 Sat by Pulse 100 Oximetry 04/12/18 04/12/18 04/12/18 15:58 17:00 17:34 Temperature Pulse Rate 85 Respiratory 16 16 16 Rate Blood Pressure 150/101 (mmHg) O2 Sat by Pulse 100 Oximetry 04/12/18 04/12/18 04/13/18 21:00 23:05 01:05 Temperature Pulse Rate Respiratory 16 16 16 Rate Blood Pressure (mmHg) O2 Sat by Pulse Oximetry 04/13/18 04/13/18 04/13/18 07:33 09:44 09:45 Temperature 97.4 F Pulse Rate 97 107 Respiratory 16 18 18 Rate Blood Pressure 148/110 155/98 (mmHg) O2 Sat by Pulse 100 100 Oximetry Sodium 135 mmol/L (135-145) 04/10/18 11:44 Potassium 4.1 mmol/L (3.5-5.0) 04/10/18 11:44 BUN 5 mg/dL (6-24) L 04/10/18 11:44 Creatinine 0.63 mg/dL (0.67-1.17) L 04/10/18 11:44 Hemoglobin A1c 4.9 % (4.0-5.6) 04/12/18 07:16 Calcium 9.0 mg/dL (8.6-10.3) 04/10/18 11:44 AST 17 U/L (13-39) 04/10/18 11:44 ALT 14 U/L (7-52) 04/10/18 11:44 Triglycerides 214 mg/dL 04/12/18 07:16 Cholesterol 239 mg/dL 04/12/18 07:16 LDL Cholesterol 120 mg/dL 04/12/18 07:16 Acetaminophen (Tylenol Tab*) 650 mg PO Q4H PRN PRN Reason: PAIN or TEMP > 101 F Last Admin: 04/12/18 23:05 Dose: 650 mg Al Hydrox/Mg Hydrox/Simethicone (Maalox Plus*) 30 ml PO Q4H PRN PRN Reason: INDIGESTION Clonidine HCl (Catapres Tab*) 0.1 mg PO TID [facility] Last Admin: 04/13/18 08:37 Dose: 0.1 mg Device (Nicotine Mouth Piece*) 1 each INH .USE W/ CARTRIDGE PRN PRN Reason: WITHDRAWAL - NICOTINE Last Admin: 04/13/18 05:15 Dose: 1 each Diltiazem HCl (Cardizem Cd Cap*) 180 mg PO DAILY [facility] Last Admin: 04/13/18 08:37 Dose: 180 mg Folic Acid (Folvite Tab*) 1 mg PO DAILY [facility] Last Admin: 04/13/18 08:37 Dose: 1 mg Haloperidol (Haldol Tab*) 5 mg PO Q6H PRN PRN Reason: AGITATION Last Admin: 04/10/18 19:14 Dose: 5 mg Lorazepam (Ativan Tab(*)) 0 - 6 mg PO .PER [facility] PROTOCOL [facility]; Protocol Last Admin: 04/12/18 23:05 Dose: 2 mg Multi-Ingredient Mouthwash/Gargle (Magic Mouth Was-Jason/Maal/Lido*) 5 ml SWISH SPIT QID PRN PRN Reason: mouth pain Multivitamins (Theragran Tab*) 1 tab PO DAILY [facility] Last Admin: 04/13/18 08:37 Dose: 1 tab Nicotine (Nicotine Inhaler*) 10 mg INH Q2H PRN PRN Reason: CRAVING Last Admin: 04/13/18 05:15 Dose: 10 mg Nicotine (Nicotine Patch 21 Mg/24 Hr*) 1 patch TRANSDERM DAILY PRN PRN Reason: CRAVINGS Nicotine Polacrilex (Nicotine Gum*) 2 mg PO Q2H PRN PRN Reason: CRAVING Pharmacy Profile Note (Nicotine Patch Removal Note*) 1 note PATCH OFF 2100 [facility] Last Admin: 04/12/18 20:22 Dose: Not Given Quetiapine Fumarate (Seroquel Tab*) 200 mg PO BEDTIME [facility] Last Admin: 04/12/18 20:19 Dose: 200 mg Thiamine HCl (Vitamin B-1 Tab*) 100 mg PO DAILY [facility] Last Admin: 04/13/18 08:37 Dose: 100 mg Valproic Acid (Depakene Cap(*)) 250 mg PO BID [facility] Last Admin: 04/13/18 08:37 Dose: 250 mg Continued Medication Management: Continue Outpt Medication Medications: Current Medications Acetaminophen (Tylenol Tab*) 650 mg PO Q4H PRN PRN Reason: PAIN or TEMP > 101 F Last Admin: 04/12/18 23:05 Dose: 650 mg Al Hydrox/Mg Hydrox/Simethicone (Maalox Plus*) 30 ml PO Q4H PRN PRN Reason: INDIGESTION Clonidine HCl (Catapres Tab*) 0.1 mg PO TID [facility] Last Admin: 04/13/18 08:37 Dose: 0.1 mg Device (Nicotine Mouth Piece*) 1 each INH .USE W/ CARTRIDGE PRN PRN Reason: WITHDRAWAL - NICOTINE Last Admin: 04/13/18 05:15 Dose: 1 each Diltiazem HCl (Cardizem Cd Cap*) 180 mg PO DAILY [facility] Last Admin: 04/13/18 08:37 Dose: 180 mg Folic Acid (Folvite Tab*) 1 mg PO DAILY [facility] Last Admin: 04/13/18 08:37 Dose: 1 mg Haloperidol (Haldol Tab*) 5 mg PO Q6H PRN PRN Reason: AGITATION Last Admin: 04/10/18 19:14 Dose: 5 mg Lorazepam (Ativan Tab(*)) 0 - 6 mg PO .PER [facility] PROTOCOL [facility]; Protocol Last Admin: 04/12/18 23:05 Dose: 2 mg Multi-Ingredient Mouthwash/Gargle (Magic Mouth Was-Jason/Maal/Lido*) 5 ml SWISH SPIT QID PRN PRN Reason: mouth pain Multivitamins (Theragran Tab*) 1 tab PO DAILY [facility] Last Admin: 04/13/18 08:37 Dose: 1 tab Nicotine (Nicotine Inhaler*) 10 mg INH Q2H PRN PRN Reason: CRAVING Last Admin: 04/13/18 05:15 Dose: 10 mg Nicotine (Nicotine Patch 21 Mg/24 Hr*) 1 patch TRANSDERM DAILY PRN PRN Reason: CRAVINGS Nicotine Polacrilex (Nicotine Gum*) 2 mg PO Q2H PRN PRN Reason: CRAVING Pharmacy Profile Note (Nicotine Patch Removal Note*) 1 note PATCH OFF 2100 [facility] Last Admin: 04/12/18 20:22 Dose: Not Given Quetiapine Fumarate (Seroquel Tab*) 200 mg PO BEDTIME [facility] Last Admin: 04/12/18 20:19 Dose: 200 mg Thiamine HCl (Vitamin B-1 Tab*) 100 mg PO DAILY [facility] Last Admin: 04/13/18 08:37 Dose: 100 mg Valproic Acid (Depakene Cap(*)) 250 mg PO BID [facility] Last Admin: 04/13/18 08:37 Dose: 250 mg - Discharge Plan Discharge Plan: Inpatient Hospitalization
--- NOTE | 2018-04-13 11:13 | PN ---
Subjective - Subjective Date of Service: 04/13/18 Service Type: 40240 Hosp care 35 min high complexity Subjective: Nursing Report: Patient was visible on unit, no chemical restraints No behavioral concerns . Slept overnight without incident. CC: " My voices are better" Patient was seen and evaluated in the common room. He preferred not to talk in the common room and requested to be seen in his room. The patient said that his voices have improved and is thinking about going to alcohol rehabilitation. He denied seizures, visual hallucinations , tactile hallucinations. He reported having an adequate appetite and sleep. Per nursing no behavioral issues or overnight events reported. Objective - Appearance Appearance: Thin Framed Dysmorphic Features: No Hygiene: Normal Grooming: Fairly Well Kept - Behavior Psychomotor Activities: Normal Exhibits Abnormal Movement: No - Attitude and Relatedness Attitude and Relatedness: Cooperative Eye Contact: Fair - Speech Quality: Unpressured Latencies: Normal Quantity: Appropriate - Mood Patient's Decription of Mood: "Okay" - Affect Observed Affect: Non-labile Affect Consistent with: Dysphoria - Thought Process Patient's Thought Process: Goal Directed Thought Content: Yes Paranoid Ideation, No Passive Wish, No Suicidal Planning, No Homicidal Ideation - Sensorium Experiencing Hallucinations: No, Sensorium is Clear Type of Hallucinations: Visual: No, Auditory: No, Command: No - Level of Consciousness Level of Consciousness: Alert Orientation: Yes Intact, Yes Orientated to Time, Yes Orientated to Place, Yes Orientated to Person - Impulse Control Impulse Control: Tenuous - Insight and Judgement Insight and Judgement: Fair - Group Participation Particating in Group Activities: Yes - Medication Management Medication Management Adherence: Partial Assessment - Assessment Clinical Impression: 47 year old male with a history of schizophrenia who is homeless. He has been responsive to treatment and no longer hears voices. Patient considering alcohol rehabilitation center. Plan - Plan Treatment Plan: Name: GABRIELA GRECO Birthdate: 1970 [id number] # Voluntary admission. The patient requires inpatient admission at this time to assure safety, receive treatment and work toward stabilization. #Q15 minute observation # Patient has no collateral information contacts #Continue Seroquel 200mg at night. #[facility] protocol #Continue Depakote 250mg BID. Liver enzymes within normal limits #Patient is considering alcohol rehabilitation center in [place]. #Tobacco use disorder: Nicotine supplement treatment offered and put in place. He refused smoking cessation resources. #Goals before discharge include: Mitigate auditory hallucinations and suicidal ideation. Vital Signs 04/12/18 04/12/18 04/12/18 15:00 15:05 15:11 Temperature Pulse Rate 99 Respiratory 16 16 16 Rate Blood Pressure 157/104 (mmHg) O2 Sat by Pulse 100 Oximetry 04/12/18 04/12/18 04/12/18 15:58 17:00 17:34 Temperature Pulse Rate 85 Respiratory 16 16 16 Rate Blood Pressure 150/101 (mmHg) O2 Sat by Pulse 100 Oximetry 04/12/18 04/12/18 04/13/18 21:00 23:05 01:05 Temperature Pulse Rate Respiratory 16 16 16 Rate Blood Pressure (mmHg) O2 Sat by Pulse Oximetry 04/13/18 04/13/18 04/13/18 07:33 09:44 09:45 Temperature 97.4 F Pulse Rate 97 107 Respiratory 16 18 18 Rate Blood Pressure 148/110 155/98 (mmHg) O2 Sat by Pulse 100 100 Oximetry Sodium 135 mmol/L (135-145) 04/10/18 11:44 Potassium 4.1 mmol/L (3.5-5.0) 04/10/18 11:44 BUN 5 mg/dL (6-24) L 04/10/18 11:44 Creatinine 0.63 mg/dL (0.67-1.17) L 04/10/18 11:44 Hemoglobin A1c 4.9 % (4.0-5.6) 04/12/18 07:16 Calcium 9.0 mg/dL (8.6-10.3) 04/10/18 11:44 AST 17 U/L (13-39) 04/10/18 11:44 ALT 14 U/L (7-52) 04/10/18 11:44 Triglycerides 214 mg/dL 04/12/18 07:16 Cholesterol 239 mg/dL 04/12/18 07:16 LDL Cholesterol 120 mg/dL 04/12/18 07:16 Acetaminophen (Tylenol Tab*) 650 mg PO Q4H PRN PRN Reason: PAIN or TEMP > 101 F Last Admin: 04/12/18 23:05 Dose: 650 mg Al Hydrox/Mg Hydrox/Simethicone (Maalox Plus*) 30 ml PO Q4H PRN PRN Reason: INDIGESTION Clonidine HCl (Catapres Tab*) 0.1 mg PO TID [facility] Last Admin: 04/13/18 08:37 Dose: 0.1 mg Device (Nicotine Mouth Piece*) 1 each INH .USE W/ CARTRIDGE PRN PRN Reason: WITHDRAWAL - NICOTINE Last Admin: 04/13/18 05:15 Dose: 1 each Diltiazem HCl (Cardizem Cd Cap*) 180 mg PO DAILY [facility] Last Admin: 04/13/18 08:37 Dose: 180 mg Folic Acid (Folvite Tab*) 1 mg PO DAILY [facility] Last Admin: 04/13/18 08:37 Dose: 1 mg Haloperidol (Haldol Tab*) 5 mg PO Q6H PRN PRN Reason: AGITATION Last Admin: 04/10/18 19:14 Dose: 5 mg Lorazepam (Ativan Tab(*)) 0 - 6 mg PO .PER [facility] PROTOCOL [facility]; Protocol Last Admin: 04/12/18 23:05 Dose: 2 mg Multi-Ingredient Mouthwash/Gargle (Magic Mouth Was-Jason/Maal/Lido*) 5 ml SWISH SPIT QID PRN PRN Reason: mouth pain Multivitamins (Theragran Tab*) 1 tab PO DAILY [facility] Last Admin: 04/13/18 08:37 Dose: 1 tab Nicotine (Nicotine Inhaler*) 10 mg INH Q2H PRN PRN Reason: CRAVING Last Admin: 04/13/18 05:15 Dose: 10 mg Nicotine (Nicotine Patch 21 Mg/24 Hr*) 1 patch TRANSDERM DAILY PRN PRN Reason: CRAVINGS Nicotine Polacrilex (Nicotine Gum*) 2 mg PO Q2H PRN PRN Reason: CRAVING Pharmacy Profile Note (Nicotine Patch Removal Note*) 1 note PATCH OFF 2100 [facility] Last Admin: 04/12/18 20:22 Dose: Not Given Quetiapine Fumarate (Seroquel Tab*) 200 mg PO BEDTIME [facility] Last Admin: 04/12/18 20:19 Dose: 200 mg Thiamine HCl (Vitamin B-1 Tab*) 100 mg PO DAILY [facility] Last Admin: 04/13/18 08:37 Dose: 100 mg Valproic Acid (Depakene Cap(*)) 250 mg PO BID [facility] Last Admin: 04/13/18 08:37 Dose: 250 mg Continued Medication Management: Start Medication Medications: Current Medications Acetaminophen (Tylenol Tab*) 650 mg PO Q4H PRN PRN Reason: PAIN or TEMP > 101 F Last Admin: 04/12/18 23:05 Dose: 650 mg Al Hydrox/Mg Hydrox/Simethicone (Maalox Plus*) 30 ml PO Q4H PRN PRN Reason: INDIGESTION Clonidine HCl (Catapres Tab*) 0.1 mg PO TID [facility] Last Admin: 04/13/18 08:37 Dose: 0.1 mg Device (Nicotine Mouth Piece*) 1 each INH .USE W/ CARTRIDGE PRN PRN Reason: WITHDRAWAL - NICOTINE Last Admin: 04/13/18 05:15 Dose: 1 each Diltiazem HCl (Cardizem Cd Cap*) 180 mg PO DAILY [facility] Last Admin: 04/13/18 08:37 Dose: 180 mg Folic Acid (Folvite Tab*) 1 mg PO DAILY [facility] Last Admin: 04/13/18 08:37 Dose: 1 mg Haloperidol (Haldol Tab*) 5 mg PO Q6H PRN PRN Reason: AGITATION Last Admin: 04/10/18 19:14 Dose: 5 mg Lorazepam (Ativan Tab(*)) 0 - 6 mg PO .PER [facility] PROTOCOL [facility]; Protocol Last Admin: 04/12/18 23:05 Dose: 2 mg Multi-Ingredient Mouthwash/Gargle (Magic Mouth Was-Jason/Maal/Lido*) 5 ml SWISH SPIT QID PRN PRN Reason: mouth pain Multivitamins (Theragran Tab*) 1 tab PO DAILY [facility] Last Admin: 04/13/18 08:37 Dose: 1 tab Nicotine (Nicotine Inhaler*) 10 mg INH Q2H PRN PRN Reason: CRAVING Last Admin: 04/13/18 05:15 Dose: 10 mg Nicotine (Nicotine Patch 21 Mg/24 Hr*) 1 patch TRANSDERM DAILY PRN PRN Reason: CRAVINGS Nicotine Polacrilex (Nicotine Gum*) 2 mg PO Q2H PRN PRN Reason: CRAVING Pharmacy Profile Note (Nicotine Patch Removal Note*) 1 note PATCH OFF 2100 [facility] Last Admin: 04/12/18 20:22 Dose: Not Given Quetiapine Fumarate (Seroquel Tab*) 200 mg PO BEDTIME [facility] Last Admin: 04/12/18 20:19 Dose: 200 mg Thiamine HCl (Vitamin B-1 Tab*) 100 mg PO DAILY [facility] Last Admin: 04/13/18 08:37 Dose: 100 mg Valproic Acid (Depakene Cap(*)) 250 mg PO BID [facility] Last Admin: 04/13/18 08:37 Dose: 250 mg - Discharge Plan Discharge Plan: Inpatient Hospitalization
[2018-04-13] MEDS: Magic Mouth Was-BEN/MAAL/LIDO SWISH SPIT PRN ×2 (18:31→21:11)
[2018-04-13] MEDS: QUEtiapine TAB* 100 MG PO SCH (21:09)
[2018-04-13] MEDS: Nicotine Patch Removal NOTE PATCH OFF SCH (21:10)
[2018-04-14] MEDS: Nicotine Inhaler* 10 MG AMP INH PRN ×5 (04:10→20:14)
[2018-04-14] MEDS: Thiamine TAB* 100 MG TAB PO SCH (08:26)
[2018-04-14] MEDS: Folic Acid TAB* 1 MG PO SCH (08:27)
[2018-04-14] MEDS: cloNIDine TAB* 0.1 MG PO SCH ×3 (08:27→20:13)
[2018-04-14] MEDS: Diltiazem CD CAP* 180 MG PO SCH (08:27)
[2018-04-14] MEDS: Vitamin THERAPEUTIC TAB PO SCH (08:27)
[2018-04-14] MEDS: Valproic Acid CAP(*) 250 MG PO SCH ×2 (08:27→20:12)
[2018-04-14] MEDS: Acetaminophen TAB* 325 MG PO PRN (13:50)
--- NOTE | 2018-04-14 17:47 | PN ---
Subjective - Subjective Date of Service: 04/14/18 Service Type: 38816 Hosp care 25 min moderate complexity Subjective: Joe spoke in [facility] first and the wanted go go to another place which is private. We were at a very private location at that time. He didn't answer my questions as much because the space wasn't private enough for him and dismissed the conversation. Reports that he would like to go to [place]. Objective - Appearance Appearance: Healthy Appearing, Thin Framed Dysmorphic Features: No Hygiene: Normal Grooming: Well Kept - Behavior Psychomotor Activities: Normal Exhibits Abnormal Movement: No - Attitude and Relatedness Attitude and Relatedness: Superficially Cooperative - Speech Quality: Unpressured Latencies: Normal Quantity: Appropriate - Mood Patient's Decription of Mood: "Fine" - Affect Observed Affect: Non-labile Affect Consistent with: Euthymia - Thought Process Patient's Thought Process: Coherent, Circumstantial Thought Content: No Passive Wish, No Suicidal Planning, No Homicidal Ideation, No Paranoid Ideation - Sensorium Experiencing Hallucinations: No, Sensorium is Clear Type of Hallucinations: Visual: No, Auditory: No, Command: No - Level of Consciousness Level of Consciousness: Alert Orientation: Yes Intact, Yes Orientated to Time, Yes Orientated to Place, Yes Orientated to Person - Impulse Control Impulse Control: Intact - Insight and Judgement Insight and Judgement: Poor - Group Participation Particating in Group Activities: No - Medication Management Medication Management Adherence: Yes Assessment - Assessment Merits Inpatient Hospitalization: For Stabilization, For Discharge Planning Plan - Plan Treatment Plan: Name: JOE GRECO Birthdate: 1970 [id number] Continued Medication Management: Continue Outpt Medication Medications: Current Medications Acetaminophen (Tylenol Tab*) 650 mg PO Q4H PRN PRN Reason: PAIN or TEMP > 101 F Last Admin: 04/14/18 13:50 Dose: 650 mg Al Hydrox/Mg Hydrox/Simethicone (Maalox Plus*) 30 ml PO Q4H PRN PRN Reason: INDIGESTION Clonidine HCl (Catapres Tab*) 0.1 mg PO TID [facility] Last Admin: 04/14/18 13:50 Dose: 0.1 mg Device (Nicotine Mouth Piece*) 1 each INH .USE W/ CARTRIDGE PRN PRN Reason: WITHDRAWAL - NICOTINE Last Admin: 04/13/18 05:15 Dose: 1 each Diltiazem HCl (Cardizem Cd Cap*) 180 mg PO DAILY [facility] Last Admin: 04/14/18 08:27 Dose: 180 mg Folic Acid (Folvite Tab*) 1 mg PO DAILY [facility] Last Admin: 04/14/18 08:27 Dose: 1 mg Haloperidol (Haldol Tab*) 5 mg PO Q6H PRN PRN Reason: AGITATION Last Admin: 04/10/18 19:14 Dose: 5 mg Lorazepam (Ativan Tab(*)) 0 - 6 mg PO .PER [facility] PROTOCOL [facility]; Protocol Last Admin: 04/12/18 23:05 Dose: 2 mg Multi-Ingredient Mouthwash/Gargle (Magic Mouth Was-Jason/Maal/Lido*) 5 ml SWISH SPIT QID PRN PRN Reason: mouth pain Last Admin: 04/13/18 21:11 Dose: 5 ml Multivitamins (Theragran Tab*) 1 tab PO DAILY [facility] Last Admin: 04/14/18 08:27 Dose: 1 tab Nicotine (Nicotine Inhaler*) 10 mg INH Q2H PRN PRN Reason: CRAVING Last Admin: 04/14/18 16:25 Dose: 10 mg Nicotine (Nicotine Patch 21 Mg/24 Hr*) 1 patch TRANSDERM DAILY PRN PRN Reason: CRAVINGS Nicotine Polacrilex (Nicotine Gum*) 2 mg PO Q2H PRN PRN Reason: CRAVING Pharmacy Profile Note (Nicotine Patch Removal Note*) 1 note PATCH OFF 2100 [facility] Last Admin: 04/13/18 21:10 Dose: Not Given Quetiapine Fumarate (Seroquel Tab*) 200 mg PO BEDTIME [facility] Last Admin: 04/13/18 21:09 Dose: 200 mg Thiamine HCl (Vitamin B-1 Tab*) 100 mg PO DAILY [facility] Last Admin: 04/14/18 08:26 Dose: 100 mg Valproic Acid (Depakene Cap(*)) 250 mg PO BID [facility] Last Admin: 04/14/18 08:27 Dose: 250 mg - Discharge Plan Discharge Plan: Outpatient Follow Up Outpatient Program: [facility]
[2018-04-14] MEDS: LORazepam TAB(*) 1 MG PO SCH (18:33)
[2018-04-14] MEDS: QUEtiapine TAB* 100 MG PO SCH (20:12)
[2018-04-14] MEDS: Nicotine Patch Removal NOTE PATCH OFF SCH (20:14)
[2018-04-14] MEDS: Haloperidol TAB* 5 MG PO PRN (20:14)
[2018-04-15] MEDS: Thiamine TAB* 100 MG TAB PO SCH (08:23)
[2018-04-15] MEDS: Diltiazem CD CAP* 180 MG PO SCH (08:23)
[2018-04-15] MEDS: Folic Acid TAB* 1 MG PO SCH (08:23)
[2018-04-15] MEDS: Vitamin THERAPEUTIC TAB PO SCH (08:23)
[2018-04-15] MEDS: cloNIDine TAB* 0.1 MG PO SCH ×3 (08:23→20:36)
[2018-04-15] MEDS: Valproic Acid CAP(*) 250 MG PO SCH ×2 (08:23→20:36)
[2018-04-15] MEDS: Nicotine Inhaler* 10 MG AMP INH PRN ×4 (08:25→17:09)
[2018-04-15] MEDS: Magic Mouth Was-BEN/MAAL/LIDO SWISH SPIT PRN (08:27)
[2018-04-15] MEDS: Haloperidol TAB* 5 MG PO PRN (10:51)
[2018-04-15] MEDS: Nicotine Patch Removal NOTE PATCH OFF SCH (20:34)
[2018-04-15] MEDS: QUEtiapine TAB* 100 MG PO SCH (20:35)
[2018-04-16] MEDS: Folic Acid TAB* 1 MG PO SCH (08:49)
[2018-04-16] MEDS: Valproic Acid CAP(*) 250 MG PO SCH (08:49)
[2018-04-16] MEDS: Thiamine TAB* 100 MG TAB PO SCH (08:49)
[2018-04-16] MEDS: Diltiazem CD CAP* 180 MG PO SCH (08:49)
[2018-04-16] MEDS: cloNIDine TAB* 0.1 MG PO SCH ×2 (08:49→13:15)
[2018-04-16] MEDS: Vitamin THERAPEUTIC TAB PO SCH (08:49)
[2018-04-16] MEDS: Nicotine Inhaler* 10 MG AMP INH PRN ×2 (09:22→11:22)
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
[2018-04-16 11:39] VITALS: BP 164/107
== END 2018-04-16 14:05 | disposition home or self-care (01) | DRG 885 ==
LOC: ED 11:14 → BSU 15:55
PROVIDERS: ADMIT Psychiatry & Neurology Psychiatry; ATTEND Psychiatry & Neurology Psychiatry
DX: F25.1 Schizoaffective disorder, depressive type (principal); R45.851 Suicidal ideations; F17.210 Nicotine dependence, cigarettes, uncomplicated; F10.10 Alcohol abuse, uncomplicated; Y90.6 Blood alcohol level of 120-199 mg/100 ml; I10 Essential (primary) hypertension; F12.90 Cannabis use, unspecified, uncomplicated; K12.0 Recurrent oral aphthae; F20.9 Schizophrenia, unspecified; Z81.1 Family history of alcohol abuse and dependence; Z59.0 Homelessness; Z79.899 Other long term (current) drug therapy
CPT/HCPCS: 36415; 80053; 80061; 80307; 80320; 80329; 81003; 83036; 84443; 84484; 85025; 86703; 90686; 93005; 99222; 99232; 99233; 99238; 99284; A9270-GY; G0480